=== PATIENT | male | born 1995 | race Caucasian/White ===

== ENCOUNTER 2017-10-29 13:36 | Emergency (ER) | payer BC ==
--- OUTSIDE RECORDS SUMMARY | 2017-10-29 13:50 | XMS REPORT ---
:1995 External Reference #:[id number] Author Organization [facility] Address [address] [place] [address] Phone [phone] Care Team Providers Name Role Phone Herb Payne MD Primary Care Physician Unavailable Payers Type Date Identification Numbers Payment Provider Subscriber Commercial Policy Number: [id number] [facility] [place] PayID: [id number] [address] [address] [place] [address] Problems Date Description Provider Status Onset: 12/28/2011 Laryngeal spasm Filemon Osuna M.D. Active Onset: 12/28/2011 Gastroesophageal reflux disease iFlemon Osuna M.D. Active Family History Date Family Member(s) Problem(s) Comments General Cancer Social History Type Date Description Comments Occupation [employer] Cigarette Use Never Smoked Cigarettes Cigars Never Smoked Cigars Pipe Never Smoked A Pipe Smokeless Tobacco Never Used Smokeless Tobacco ETOH Use Currently occasionally consumes alcohol Smoking Patient has never smoked Allergies, Adverse Reactions, Alerts Date Description Reaction Status Severity Comments 12/28/2011 NKDA active Medications Medication Date Status Form Strength Qnty SIG Indications Ordering Provider Oxycodone HCL 10/18/ Active Solution 5mg/5ML 250ml 5 to 10 J35.1 Filemon Mack milliliters Thao by Yoli muñoz every 4 hours as needed pain Probiotic 00/ Active Capsules as directed Unknown 0000 No Active 06/09/ Hx Unknown Medications 2016 - 2017 Zyrtec / Hx Unknown Allergy - 2016 Omeprazole / Hx Unknown 0000 - 2016 Vital Signs Date Vital Result Comment 10/18/2017 Weight 192.00 lb Weight in kg's 87.091 Height 73 inches 6'1" Height in cm's 185.4 cm BMI (Body Mass Index) 25.3 kg/m2 08/20/2017 Neck Circumference in inches 17.5 Neck Circumference in cm 44.5 cm 08/10/2017 Weight 197.00 lb Weight in kg's 89.359 Height 73 inches 6'1" Height in cm's 185.4 cm BMI (Body Mass Index) 26.0 kg/m2 06/09/2016 BP Systolic 133 mmHg BP Diastolic 79 mmHg Heart Rate 57 /min Respiratory Rate 17 /min Weight 197.00 lb Weight in kg's 89.359 Height 73 inches 6'1" Height in cm's 185.4 cm BMI (Body Mass Index) 26.0 kg/m2 12/28/2011 BP Systolic 117 mmHg BP Diastolic 86 mmHg Heart Rate 74 /min Respiratory Rate 16 /min Weight 244.00 lb Weight in kg's 110.678 Height 72.01 inches 6'0" Height in cm's 182.9 cm BMI (Body Mass Index) 33.1 kg/m2 Body Mass Index Percentile 98 % Results Description No Information Procedures Date CPT Code Description Status 06/09/2016 72888 Tympanometry Completed 06/09/2016 97895 Comprehensive Audiogram Completed 12/28/2011 16617 Fiberoptic Laryngoscopy Completed Encounters Type Date Location Provider CPT E/M Dx Office Visit 10/18/2017 3:15p [place] 03/15/07 Filemon Webb 58664 G47.33 Yoli Osuna J35.1 Office Visit 08/10/2017 10:15a [place],After 03/15/07 Filemon Osuna 71883 H90.3 Yoli J35.1 G47.33 Office Visit 06/09/2016 10:15a [place] 03/15/07 Filemon Webb 91504 H68.123 Yoli Osuna H90.3 Office Visit 12/28/2011 10:30a [place] 03/15/07 Filemon Osuna 88725 478.75 Yoli 530.81 Plan of Care 10/18/2017 - Filemon Osuna M.D.G47.33 Obstructive sleep apnea (adult) ( pediatric)Comments:The patient had a sleep study that showed a AHI of 16. I reviewed the sleep study with him.I recommend tonsillectomy and adenoidectomy. We discussed the surgery and postoperative course. Postoperative symptoms include throat pain, phlegm, bad breath, fluctuating fevers and ear pain. One side of thethroat may hurt more than the other. The back of the throat will turn white from scabs. This take several weeks to clear up.I explained that the major risks of surgery include, but are not limited to bleeding. He should have a FU sleep study no sooner than 3 months after surgery and then further treatment planned if needed.J35.1 Hypertrophy of tonsilsNew Medication: Oxycodone HCL 5 mg/5ML
--- NOTE | 2017-10-29 14:26 | ED ---
GI/ HPI - HPI Summary HPI Summary: This is scribe Gibson Attshari documenting for attending Kit Giles. Patient is a 22 y/o M c/o GI bleed onset 2 days ago. Pain is rated a 0/10, per dish person. Assoc. Sx: Blood streaked stool. Denies: fever. Patient reportedly woke up to use the bathroom 2 days ago and noticed continuous blood from from the anus. He reports another bowel movement this AM in which it was all "red" in the toilet bowl. Allergies: bees, almonds. PMHx: appendicitis (3 yrs ago). I, Dr. Giles, personally performed the services described in this documentation as scribed in my presence and it is both accurate and complete. - History of Current Complaint Chief Complaint: EDGIBleed Time Seen by Provider: 10/29/17 14:14 Stated Complaint: BLOOD IN STOOL Hx Obtained From: Patient Onset/Duration: Started Days Ago - 2, Still Present Timing: Intermittent Current Severity: None Pain Intensity: 0 Associated Signs and Symptoms: Positive: Blood-Streaked Stool. Negative: Fever - Allergy/Home Medications Allergies/Adverse Reactions: Allergies Allergy/AdvReac Type Severity Reaction Status Date / Time almond Allergy Mild See Comment Verified 10/29/17 13:43 Bee Stings Allergy Unknown Hives Uncoded 10/29/17 13:43 PMH/Surg Hx/FS Hx/Imm Hx Endocrine/Hematology History: Denies: Hx Diabetes, Hx Systemic Lupus Erythematosus Cardiovascular History: Denies: Hx Congestive Heart Failure, Hx Hypertension History: Denies: Hx Renal Disease Musculoskeletal History: Denies: Hx Rheumatoid Arthritis - Cancer History Hx Chemotherapy: No - Surgical History Surgery Procedure, Year, and Place: wisdom teeth. appy Infectious Disease History: No Infectious Disease History: Denies: History Other Infectious Disease, Traveled Outside the [place] in Last 30 Days - Social History Alcohol Use: Weekly Substance Use Type: Reports: None Smoking Status (MU): Current Some Day Smoker Type: Cigarettes Amount Used/How Often: 2 cig./week Review of Systems Negative: Fever Positive: other - POS: blood streaked stool All Other Systems Reviewed And Are Negative: Yes Physical Exam - Summary Physical Exam Summary: VITAL SIGNS: Reviewed. GENERAL: Patient is a well-developed and nourished Male who is lying comfortable in the stretcher. Patient is not in any acute respiratory distress. HEAD AND FACE: No signs of trauma. No ecchymosis, hematomas or skull depressions. No sinus tenderness. EYES: PERRLA, EOMI x 2, No injected conjunctiva, no nystagmus. EARS: Hearing grossly intact. Ear canals and tympanic membranes are within normal limits. MOUTH: Oropharynx within normal limits. NECK: Supple, trachea is midline, no adenopathy, no JVD, no carotid bruit, no c- spine tenderness, neck with full ROM. CHEST: Symmetric, no tenderness at palpation LUNGS: Clear to auscultation bilaterally. No wheezing or crackles. CVS: Regular rate and rhythm, S1 and S2 present, no murmurs or gallops appreciated. ABDOMEN: Soft, non-tender. No signs of distention. No rebound no guarding, and no masses palpated. Bowel sounds are normal. EXTREMITIES: FROM in all major joints, no edema, no cyanosis or clubbing. NEURO: Alert and oriented x 3. No acute neurological deficits. Speech is normal and follows commands. SKIN: Dry and warm RECTAL: Normal sphincter tone, no cross blood or melena. Triage Information Reviewed: Yes Vital Signs On Initial Exam: Initial Vitals Temp Pulse Resp BP Pulse Ox 97.7 F 71 14 140/77 97 10/29/17 13:40 10/29/17 13:40 10/29/17 13:40 10/29/17 13:40 10/29/17 13:40 Vital Signs Reviewed: Yes Diagnostics - Vital Signs Vital Signs Temp Pulse Resp BP Pulse Ox 10/29/17 13:40 97.7 F 71 14 140/77 97 - Laboratory Result Diagrams: 10/29/17 15:15 10/29/17 15:15 Lab Statement: Any lab studies that have been ordered have been reviewed, and results considered in the medical decision making process. GIGU Course/Dx - Course Assessment/Plan: This patient is a 22-year-old male who presents to the emergency department with a chief complaint of having bright red per rectum. The patient reports that he was having a bowel movement 3 days ago and he noticed some bright red per rectum. Today he had another episode where he had a bowel movement and he developed another episode of bright blood per rectum. She denies any abdominal pain, nausea vomiting diarrhea or constipation. Blood test results without any significant abnormality. Hemoglobin and hematocrit stable with a value of 16 point 5/48. Platelets are normal 242. PT and INR also normal. Blood testing was negative. Therefore I suspect that the patient is having a hemorrhoid likely internal hemorrhoid, which is causing some bleeding when he strains. Therefore the patient will be discharged home with a prescription for Anusol. Patient was recommended to follow up with primary care physician and if he develops any other type of bleeding or rectal bleeding the patient she'll immediately return to the restroom for further workup and management. At this point the patient is hemodynamically stable alert and oriented 3 and he has no other complaints. I discussed all the findings and test results with the patient. Patient was instructed to return to the emergency room immediately if any of the symptoms return or worsens. Plan of care was discussed with the patient and understands and agrees. All questions were answered at patient satisfaction. There were no further complaints or concerns. Lung exam before discharge: CTA B/L. Good air exchange. No wheezing or crackles heard. CVS: S1 and S2 present. No murmurs appreciated. Patient is alert and oriented x 3. Patient is hemodynamically stable. Patient will be discharged home with follow up PCP in the next 2-3 days - Diagnoses Provider Diagnoses: Rectal bleed Discharge - Sign-Out/Discharge Documenting (check all that apply): Patient Departure - Discharge Plan Condition: Stable Disposition: HOME Prescriptions: Hydrocortisone SUPP* [Anusol HC Supp*] 25 mg OR BID #14 supp Patient Education Materials: Rectal Bleeding (ED) Referrals: Herb Payne MD [Primary Care Provider] - 3 Days Additional Instructions: RETURN TO THE ED FOR ANY WORSENING OR NEW SYMPTOMS. - Billing Disposition and Condition Condition: STABLE Disposition: Home Attestations Scribe Attestation: IDr. Giles personally performed the services described in this documentation as scribed in my presence and it is both accurate and complete. User Type: Provider with Scribe Provider Attestation: The documentation recorded by the scribe accurately reflects the service I personally performed and the decisions made by me.
[2017-10-29 15:22] LABS: ABS Basophils 0.1 10^3/ul (0-0.2); ABS Eosinophils 0.3 10^3/ul (0-0.6); ABS Lymphocytes 1.8 10^3/ul (1.0-4.8); ABS Monocytes 0.9 10^3/ul (0-0.8); ABS Neutrophils 5.5 10^3/ul (1.5-7.7); ABS Nucleated RBC 0 10^3/ul; Eosinophil % 3.5 % (0-6); Hematocrit 48 % (42-52); Hemoglobin 16.5 g/dl (14.0-18.0); Lymphocyte % 21.4 % (25-47); Mean Corpuscular HGB Conc 34 g/dl (31-36); Mean Corpuscular Hemoglobin 30 pg (27-31); Mean Corpuscular Volume 89 fL (80-94); Mean Platelet Volume 8.1 um3 (7.4-10.4); Nucleated Red Blood Cells % 0.1; Platelet Count 242 10^3/ul (150-450); Red Blood Count 5.43 10^6/ul (4.00-5.40); Red Cell Distribution Width 13 % (10.5-15); White Blood Count 8.6 10^3/ul (3.5-10.8)
[2017-10-29 15:30] LABS: INR 0.94 (0.77-1.02)
[2017-10-29 15:53] LABS: EGFR Non-African American 91.8 (>60)
[2017-10-29 17:01] VITALS: BP 145/98
== END 2017-10-29 17:01 | disposition home or self-care (01) ==
LOC: ED 13:36
DX: K62.5 Hemorrhage of anus and rectum (principal); F17.210 Nicotine dependence, cigarettes, uncomplicated
CPT/HCPCS: 36415; 80053; 82270; 85025; 85610; 85730; 99282

== ENCOUNTER 2018-09-21 14:15 | Emergency (ER) | payer BC ==
[2018-09-21 14:47] VITALS: BP 128/77
--- NOTE | 2018-09-21 15:46 | UC ---
Hand/Wrist HPI - HPI Summary HPI Summary: 23 y/o male presents to the urgent care c/o right index finger swelling, feels tight with with flexion, swelling moving to palm. swelling onset 3-4 weeks ago but worsening. Pt returned from [place] yesterday. pt dx with psoriasis 5-6 yrs ago. Pt is right handed. - History Of Current Complaint Chief Complaint: UCUpperExtremity Stated Complaint: HAND PAIN Time Seen by Provider: 09/21/18 15:44 Hx Obtained From: Patient Pain Intensity: 3 - Allergies/Home Medications Allergies/Adverse Reactions: Allergies Allergy/AdvReac Type Severity Reaction Status Date / Time almond Allergy Mild See Comment Verified 09/21/18 14:47 Bee Stings Allergy Unknown Anaphylatic Uncoded 09/21/18 14:47 Shock PMH/Surg Hx/FS Hx/Imm Hx - Surgical History Surgical History: Yes Surgery Procedure, Year, and Place: [place] teeth extraction. Appendectomy 2014. psoriasis - Social History Alcohol Use: Weekly Alcohol Amount: weekends-has a few drinks Substance Use Type: Marijuana Substance Use Comment - Amount & Last Used: Last week sometime Smoking Status (MU): Current Some Day Smoker Type: Cigarettes Amount Used/How Often: tried it, smokes sometimes Have You Smoked in the Last Year: Yes Physical Exam - Summary Physical Exam Summary: Vital Signs Reviewed: Yes General: Well developed well nourished male sitting in the examining table w/o any apparent distress Eyes: Positive: Conjunctiva Clear - PERRLA, EOMI ENT: Positive: Normal ENT inspection, Hearing grossly normal, Pharynx normal, TMs normal Neck: Positive: Supple, Nontender, No Lymphadenopathy Respiratory: Positive: Chest non-tender, Lungs clear, Normal breath sounds, No respiratory distress Cardiovascular: Positive: RRR, No Murmur, Pulses Normal, Brisk Capillary Refill Abdomen Description: Positive: Nontender, No Organomegaly, Soft. Negative: CVA Tenderness (R), CVA Tenderness (L) Bowel Sounds: Positive: Present Musculoskeletal: Positive: Strength Intact, No Edema, RT Hand/Fingers: the L hand is without obvious asymmetry or deformity when compared to the R hand. mild swelling around dorsal side of #2 metacarpal and MCPJ, Pt keeps #5 phalanx in abducted position, but can adduct phalanx, no erythema, atrophy, or obvious deformity. No surface trauma, open wounds,bony deformity. Normal cascade of fingers. Normal flexion and extension of fingers, except for #5 phalanx due to pain. FDS and FDP intact against resistance. No focal fullness, throbbing pain , swelling of finger tip. Pulses and capillary refill WNL, positive reflexes and sensation intact point tenderness over the Rt 3rd DIPJ w/ decrease ROM and possible heberden node is forming,no redness or soft tissue swelling observed or warm to touch. Neurological Exam: Normal Psychological Exam: Normal Skin Exam: Normal Triage Information Reviewed: Yes Vital Signs: Initial Vital Signs Temp 98.6 F 09/21/18 14:41 Pulse 73 09/21/18 14:41 Resp 16 09/21/18 14:41 BP 128/77 09/21/18 14:41 Pulse Ox 100 09/21/18 14:41 Hand/Wrist Course/Dx - Course Course Of Treatment: IMPRESSION: No fracture of the left right index finger is noted. - Differential Dx/Diagnosis Differential Diagnosis/HQI/PQRI: Contusion, Infection, Sprain, Strain, Tendonitis, Other - psoriatic arthritis Provider Diagnosis: Sprain of right index finger Discharge - Sign-Out/Discharge Documenting (check all that apply): Patient Departure - d/c home All imaging exams completed and their final reports reviewed: Yes - Discharge Plan Condition: Stable Disposition: HOME Prescriptions: Ibuprofen TAB* [Motrin TAB* 600 MG] 600 mg PO Q8H PRN #30 tab PRN Reason: Pain Patient Education Materials: Finger Sprain (ED) Referrals: [facility] [Provider Group] - 3 Days Herb Payne MD [Primary Care Provider] - 1 Week Gibson Hook MD [Medical Doctor] - 1 Week Additional Instructions: 1-Please take Ibuprofen PO q6-8hrs prn medications as directed to alleviate pain and swelling. 2-Please apply ice, keep your finger immobilized with the splint. 3- Please f/u with Orthopedic from Sports Medicine in 3 days if not improvement of symptoms for further evaluation and treatment. - Billing Disposition and Condition Condition: STABLE Disposition: Home
== END 2018-09-21 17:00 | disposition home or self-care (01) ==
LOC: UCEAST 14:15
DX: S63.610A Unspecified sprain of right index finger, initial encounter (principal); X58.XXXA Exposure to other specified factors, initial encounter; Y92.9 Unspecified place or not applicable; F17.210 Nicotine dependence, cigarettes, uncomplicated
CPT/HCPCS: 73140; 99211; G0463